=== PATIENT | female | born 1965 | race Caucasian/White ===

== ENCOUNTER → 2017-11-07 10:38 | Outpatient (CLI) | payer OTHER, SELFPAY ==
--- NOTE | 2017-11-07 | DI.MG.S_ITS ---
BILATERAL DIGITAL SCREENING MAMMOGRAM 3D/2D WITH CAD: 11/07/2017 CLINICAL: Routine screening. Comparison is made to exams dated: 11/03/2016 mammogram, 10/29/2015 mammogram, and 10/27/2014 mammogram - [facility]. The tissue of both breasts is heterogeneously dense. This may lower the sensitivity of mammography. Current study was also evaluated with a Computer Aided Detection (CAD) system. There is an asymmetry in the left breast posterior depth superior region seen on the mediolateral oblique view only. No other significant masses, calcifications, or other findings are seen in either breast. IMPRESSION: INCOMPLETE: NEEDS ADDITIONAL IMAGING EVALUATION The asymmetry in the left breast is indeterminate. Additional views with possible ultrasound are recommended. This exam was interpreted at Station ID: [id number]. NOTE: For mammograms, a report in lay terms will be sent to the patient. Approximately 15% of breast malignancies will not be visualized mammographically. In the management of a palpable breast mass, a negative mammogram must not discourage biopsy of a clinically suspicious lesion. Electronically Signed By: Ayana patel/terri:11/10/2017 09:36:42 letter sent: Additional Imaging Needed ACR BI-RADS Category 0: Incomplete [id number]
== END ==
PROVIDERS: Family Provider Family Medicine; PCP Family Medicine; Visit Provider Family Medicine
DX: Z12.31 Encounter for screening mammogram for malignant neoplasm of breast (principal); R92.8 Other abnormal and inconclusive findings on diagnostic imaging of breast
CPT/HCPCS: 77063; 77067

== ENCOUNTER 2017-11-18 11:05 | Emergency (ER) | payer OTHER, SELFPAY ==
[2017-11-18] VITALS (7 sets, daily range): BP systolic 136–156; BP diastolic 87–100; PULSE 75–95; RESP 16–18; TEMP 36.8–36.9; O2SAT 98–100
--- NOTE | 2017-11-18 13:03 | ED.ABDPAIN ---
HPI - Abdominal Pain General Chief Complaint: Abdominal Pain Stated Complaint: TO GET US ON ABDOMEN&CHECK TO SEE PARACENTESIS Time Seen by Provider: 11/18/17 12:14 Source: patient Mode of arrival: ambulatory Limitations: no limitations History of Present Illness HPI narrative: 52-year-old female with a history of stage IV colon cancer and recurrent ascites, as well as DVT on warfarin presents with increasing abdominal distention and pain requesting paracentesis. She had this done 6 times in June but has not had to have it done since. She denies fevers, chills, nausea, vomiting, diarrhea, or constipation. She notes that it has been done in radiology previously and would like to have it done by radiologist as possible. She states that her pain is usually controlled with a fentanyl patch but because of the distention she has needed increasing amounts of oral pain medication as well. She declines having a CT performed today and declines lab work as it was just done yesterday. Notes her INR was 3.5. When she called the oncology clinic they advised vitamin K and paracentesis. Related Data Home Medications Medication Instructions Recorded Confirmed levonorgestrel [Mirena] 52 mg INTRAU .ONCE #0 05/26/16 11/18/17 [clondoctrine] 1 dose PO QDAY #0 06/10/17 11/18/17 glucosamine sulfate [Synovacin] 500 mg PO QDAY #0 06/10/17 11/18/17 turmeric root extract 1 tab PO DAILY #0 08/19/17 11/18/17 lorazepam 0.5 mg PO Q6HP PRN 10/15/17 11/18/17 fentanyl 1 patch TOPICAL Q72H 11/18/17 11/18/17 gabapentin 1 - 2 cap PO TID PRN 11/18/17 11/18/17 warfarin 4 mg PO TUTH 11/18/17 11/18/17 warfarin [Coumadin] 5 mg PO SUMOWEFRSA 11/18/17 11/18/17 zolpidem 5 - 10 mg PO BEDTIME PRN 11/18/17 11/18/17 Previous Rx's Medication Instructions Recorded losartan 50 mg PO QDAY #90 tab 05/05/17 oxycodone-acetaminophen [Percocet] 1 - 2 tab PO Q4HP PRN #60 tab 07/22/17 Allergies Allergy/AdvReac Type Severity Reaction Status Date / Time shellfish derived Allergy Unknown Verified 11/18/17 14:54 [SHELLFISH DERIVED] SEAFOOD AdvReac Unknown VOMITING Uncoded 11/18/17 14:54 AND DIARRHEA Review of Systems Review of Systems All systems reviewed & are unremarkable except as noted in HPI and below Constitutional Denies chills, Denies fever(s), Denies lethargy and Denies weakness Eyes Denies change in vision, Denies eye discharge, Denies irritation and Denies loss of vision ENT Ears, Nose, Mouth, and Throat: Denies change in voice, Denies neck pain and Denies sore throat Cardiovascular Denies chest pain, Denies irregular heart rhythm, Denies lightheadedness, Denies palpitations, Denies dyspnea, Denies dyspnea on exertion and Denies orthopnea Respiratory Denies cough, Denies dyspnea, Denies dyspnea on exertion and Denies wheezing Gastrointestinal Gastrointestinal: Reports abdominal pain, Denies change in bowel habits, Denies diarrhea, Denies nausea and Denies vomiting Comments: Diffuse abdominal pain and distention Genitourinary Denies hematuria, Denies flank pain, Denies urinary incontinence and Denies urinary urgency Musculoskeletal Denies neck pain Integumentary/Breasts Denies pruritus, Denies erythema, Denies rash and Denies wounds Neurologic Denies confusion, Denies loss of vision and Denies weakness Psychiatric Denies anxiety, Denies confusion, Denies depression, Denies homicidal ideation and Denies suicidal ideation Endocrine Denies palpitations Hematologic/Lymphatic Denies easy bruising Allergic/Immunologic Denies wheezing [facility] Social History Smoking Status: Never smoker Exam Initial Vital Signs Initial Vital Signs: Vital Signs Temperature 98.4 F 11/18/17 11:16 Pulse Rate 95 H 11/18/17 11:16 Respiratory Rate 18 11/18/17 11:16 Blood Pressure 139/100 H 11/18/17 11:16 Pulse Oximetry 98 11/18/17 11:16 Const General: cooperative and well developed Nutritional Appearance: well nourished Orientation: alert, awake, oriented x3 and not confused HENND Head: normocephalic and atraumatic Ears: external ears normal and TM's normal bilaterally Nose: external nose normal and No nasal discharge Face and sinus: sinuses nontender, face symmetric, no sinus tenderness and No dry mucous membranes Mouth: oral mucosae normal and moist mucous membranes Teeth and gingiva: dentition normal Throat: tonsils normal and uvula midline Eyes General: appearance normal, both eyes and all related structures Eyelids: eyelids normal Conjunctivae: conjunctivae normal Sclera: sclerae normal Pupils: PERRL EOM: EOM intact bilaterally Neck Neck: normal visual inspection, trachea midline, No lymphadenopathy, No midline deformity and No JVD Lymphatic: No lymphedema Chest Chest: normal inspection of the chest Resp Effort & Inspection: normal respiratory effort, able to speak in complete sentences, no respiratory distress and no use of accessory muscles Auscultation: clear to auscultation bilaterally, no rales, no rhonchi and no wheezes Cardio Rate: regular rate Rhythm: regular rhythm Heart Sounds: no click, no gallops, no murmurs and no rubs Pulses: normal peripheral pulses GI Inspection: distended Palpation: soft, no hepatosplenomegaly, No guarding, No pulsatile mass and tender Auscultation: normal bowel sounds Other: Mild diffuse tenderness, positive fluid wave, moderate-size fluid pockets with bedside ultrasound, positive shifting dullness Back/Spine/Pelvis Back: No CVA tenderness Cervical Spine: cervical ROM normal and No pain with cervical ROM Thoracic/Lumbar Spine: thoracic and lumbar spine normal to inspection Skin General: no rashes or lesions noted, No jaundice and No petechiae Neuro General: alert, oriented x3, gait normal and no focal motor deficits Speech: speech normal Extrem General: full ROM, no clubbing, cyanosis or edema, no pedal edema and no calf tenderness Psych Appearance: well kempt Mental Status: mental status grossly normal Attitude: cooperative Thought Content: normal and suicidality Judgment: judgment good Procedures Paracentesis Time Out Performed: Yes Local Anesthetic: lidocaine 1% and with epi Fluid: cloudy, bloody and sent to lab for analysis (5.5 L removed. PT tolerated well without hypotension. ) Post Procedure Exam: awake, alert Patient Tolerated Procedure: Well and No complications Complications: none Course Orders Ordered: ED Orders 11/18/17 13:55 Prothrombin Time INR Stat 11/18/17 15:30 Cell Count w Diff Body Fluid Stat Glucose Body Fluid Stat LDH Body Fluid Stat Total Protein Body Fluid Stat 11/18/17 16:36 Body Fluid Culture Stat Discontinued Medications Phytonadione 10 mg/ Dextrose 51 mls @ 102 mls/hr IV NOW ONE Stop: 11/18/17 14:00 Last Infusion: 11/18/17 14:54 Dose: 0 mls/hr Admin: 11/18/17 14:28 Dose: 102 mls/hr Reevaluation(s) Reevaluation #1: I discussed with the patient her options and she would like to have the paracentesis done by me now and will accept the vitamin K in the IV. Repeat INR is currently pending. Time: 14:14 Consultations Consultation #1: Discussed patient's care with Dr. Grover in Radiology and he notes that he would not do a paracentesis unless her platelets are above 50 and her INR is below 1.5. Time: 14:14 Consultation #2: Discussed patient's care with Dr. Myers who agrees she needs CT abdomen and pelvis. Patient would like to wait until her follow-up on Thursday. Time: 17:01 Vital Signs - 8 hr 11/18/17 11:16 11/18/17 14:00 11/18/17 14:55 Temperature 98.4 F Pulse Rate 95 H 82 75 Respiratory Rate 18 16 16 Blood Pressure 139/100 H Blood Pressure [Left Arm] 156/91 H 141/94 H Pulse Oximetry 98 100 100 11/18/17 15:30 11/18/17 16:00 11/18/17 16:31 Temperature 98.3 F Pulse Rate 77 79 79 Respiratory Rate 16 18 18 Blood Pressure Blood Pressure [Left Arm] 147/98 H 156/98 H 136/87 H Pulse Oximetry 100 100 100 11/18/17 16:45 Temperature Pulse Rate 78 Respiratory Rate 18 Blood Pressure Blood Pressure [Left Arm] 155/98 H Pulse Oximetry 100 MDM - Abdominal Pain Lab Data Lab Results 11/18/17 Range/Units 13:55 PT 31.0 H D (10.1-12.7) SECONDS INR 2.9 H (0.9-1.3) MDM Narrative Medical decision making narrative: Patient who is presenting symptom for her stage IV colon cancer was ascites presents with recurrence of ascites and abdominal pain. She refused lab work other than INR to be rechecked. This was elevated and she was given vitamin K 10 units. 5.5 L were withdrawn. Advised that she restart her Coumadin tomorrow. She needs to have a CT of the abdomen pelvis performed and oncology was consulted and agrees. She will have this done tomorrow. She is feeling much better and was asymptomatic after the paracentesis. She is discharged in stable condition. Discharge Plan Departure Patient Disposition: Home, Self-Care Clinical Impression: Ascites, Abdominal pain, Colon cancer Instructions: DI for Ascites, DI for Abdominal Paracentesis Activity Restrictions/Additional Instructions: It was nice to see you again Ila! I'm sorry that you are going through this hard time. Thank you for letting me be part of your care today. Please follow up on Thursday as scheduled and you will need to have a CT done much sooner than 2-3 weeks. Enjoy your day tomorrow and return if you are feeling worse. Restart your coumadin tomorrow. Prescriptions: No Action levonorgestrel [Mirena] 1 EACH intrauterine device 52 mg INTRAU .ONCE Qty: 0 RF: 0 losartan 50 MG tablet 50 mg PO QDAY Qty: 90 RF: 3 glucosamine sulfate [Synovacin] 500 MG capsule 500 mg PO QDAY Qty: 0 RF: 0 [clondoctrine] 1 dose PO QDAY Qty: 0 RF: 0 oxycodone-acetaminophen [Percocet] 5 MG/325 MG tablet 1 - 2 tab PO Q4HP PRNQty: 60 RF: 0 turmeric root extract 1 tab PO DAILY Qty: 0 RF: 0 lorazepam 0.5 MG tablet 0.5 mg PO Q6HP PRN (Reason: nausea or sleep) RF: 0 fentanyl 50 mcg/hr patch 72 hour 1 patch Topical Q72H RF: 0 gabapentin 300 mg capsule 1 - 2 cap PO TID PRN (Reason: Pain, Moderate) RF: 0 warfarin 4 mg tablet 4 mg PO TUTH RF: 0 warfarin [Coumadin] 5 MG tablet 5 mg PO SUMOWEFR RF: 0 zolpidem 10 MG tablet 5 - 10 mg PO BEDTIME PRN (Reason: Sleep) RF: 0 Referrals: Dwight Jimenez MD [Primary Care Provider] -
[2017-11-18 14:10] LABS: INR 2.9 (0.9-1.3)
[2017-11-18] MEDS: PHYTONADIONE (VIT K1) 10 MG in DEXTROSE 5 % IN WATER 50 ML 102 ML IV (14:28)
--- NOTE | 2017-11-18 16:28 | PC.NURSE ---
Pt tolerated procedure well, vitals stable throughout. Pt denies pain or discomfort.
[2017-11-18 17:01] LABS: Glucose Body Fluid < 20 mg/dL; Total Protein Body Fluid 5.2 g/dL
[2017-11-18 17:07] LABS: LDH Body Fluid 2283 U/L
[2017-11-18 17:32] LABS: Body Fluid Red Blood Cells 15218 /uL; Body Fluid Tot Nucleated Cells 1409 /uL
[2017-11-18 17:59] LABS: Body Fluid Appearance CLOUDY; Body Fluid Clotted? NO CLOTS PRESENT; Body Fluid Color PINK
[2017-11-18 20:27] LABS: Mononuclear WBC Body Fluid 100 %; Polynuclear WBC Body Fluid 0 %
[2017-11-18 20:28] LABS: Eosinophils Body Fluid 0 %; Other Cells Body Fluid 0 %
== END 2017-11-18 17:10 | disposition home or self-care (01) ==
PROVIDERS: Emergency Provider Emergency Medicine; Family Provider Family Medicine; PCP Family Medicine
DX: R18.8 Other ascites (principal); R10.9 Unspecified abdominal pain; C18.9 Malignant neoplasm of colon, unspecified
CPT/HCPCS: 36415; 49082; 82945; 83615; 84157; 85610; 87070; 87075; 87205; 89051; 96365; 99283; 99285; 99292; J3430

== ENCOUNTER → 2017-11-23 13:39 | Outpatient (CLI) | payer OTHER, SELFPAY ==
--- NOTE | 2017-11-23 14:05 | DI.CT.S_ITS ---
PROCEDURE: CT CHEST ABD PEL W CON INDICATIONS: metastatic colon ca, re accumulation of ascites 11/12 cycles TECHNIQUE: After the administration of oral and intravenous contrast, 5 mm thick sections acquired from the lung apices to the symphysis. 5 mm coronal and sagittal reformats were performed, with additional 7 mm coronal MIP reformats through the lungs. For radiation dose reduction, the following was used: automated exposure control, adjustment of mA and/or kV according to patient size. COMPARISON: [facility], CT, ABDOMEN/PELVIS WITH CONTRAST, 06/14/2017, 13:34. [facility], CT, THORAX WITH CONTRAST, 09/11/2017, 15:21. [facility], CT, SOFT TISSUE NECK W CONTRAST, 09/11/2017, 15:21. [facility], CT, CHEST/ABD/PEL WITH CONTRAST, 08/25/2017, 11:39. FINDINGS: Image quality: Excellent. CHEST: Lungs and pleura: Several pulmonary nodules are seen, which are not significantly changed compared to the prior recent study. No acute airspace opacities. No pleural effusions or pneumothorax. Central and peripheral airways appear patent and normal in caliber. Mediastinum: Heart size is normal. No pericardial effusion. No mediastinal or hilar adenopathy by size criteria. Thoracic aorta and central pulmonary arteries are normal in size. Esophagus is normal in caliber. There is abnormal fluid seen adjacent to the distal esophagus (not within the esophageal lumen). No hiatal hernia. Chest wall: A left-sided chest port is seen, with the tip within the superior aspect of the superior vena cava. No axillary or supraclavicular adenopathy by size criteria. Thyroid gland demonstrates a 1 cm poorly enhancing nodule involving the left thyroid, as on series 2 image 11. ABDOMEN: Solid organs: Liver is normal in size and enhancement. Gallbladder is largely collapsed at the time of this study. Biliary system is non dilated. Pancreas enhances normally. Spleen is normal in size and enhancement. No adrenal nodules. Kidneys demonstrate normal size and enhancement, without hydronephrosis. Peritoneum and bowel: [id number] ascites is seen. The volume of ascites is slightly decreased compared to 08/25/17 examination. There is omental caking seen. Peritoneal masses can be seen within the anterior pelvis, which are slightly obscured by the ascites itself. The peritoneal masses are similar to the prior CT. Generalized wall thickening can be seen involving the rectum. Nodes and vessels: No retroperitoneal or mesenteric adenopathy by size criteria. Aorta and inferior vena cava are normal in size. Miscellaneous: There is a calcified nodule seen along the umbilicus, which measures 3 cm transversely. This is increased in size compared to the prior CT dated 08/25/17. PELVIS: Genitourinary: Bladder wall thickness is normal. An IUD can be seen within the superior uterus. Miscellaneous: No inguinal hernias or adenopathy. Bones: No suspicious bony lesions. No vertebral body compression fractures. Degenerative changes are seen. Focal facet hypertrophy is seen at the L5-S1 level. IMPRESSION: The volume of ascites is slightly decreased compared to the prior CT. The degree of omental caking and peritoneal masses is similar to the prior CT. Fluid is seen adjacent to the distal esophagus, which is presumed to be related to ascites fluid insinuating superiorly along the esophagus itself. Stable pulmonary nodules. There is a 3 cm partially calcified nodule involving the umbilicus, which is increased in prominence compared to the prior. Stable thickening of the rectum. Incidental note is made of: 1 cm left thyroid nodule Left-sided chest port IUD Dictated by: Ross Fisher M.D. on 11/23/2017 at 14:10 Approved by: Ross Fisher M.D. on 11/23/2017 at 14:24
== END ==
PROVIDERS: Family Provider Family Medicine; PCP Family Medicine; Visit Provider Nurse Practitioner Gerontology
DX: C18.9 Malignant neoplasm of colon, unspecified (principal); C78.5 Secondary malignant neoplasm of large intestine and rectum; R91.8 Other nonspecific abnormal finding of lung field; R18.8 Other ascites; E04.1 Nontoxic single thyroid nodule
CPT/HCPCS: 71260; 74177; Q9967

== ENCOUNTER → 2018-01-11 10:40 | Outpatient (CLI) | payer OTHER, SELFPAY ==
--- NOTE | 2018-01-11 | DI.RAD.S_ITS ---
PROCEDURE: XR ABDOMEN 1V INDICATIONS: Malignant neoplasm of rectosigmoid junction TECHNIQUE: One view of the abdomen acquired. COMPARISON: [facility], CT, CT CHEST ABD PEL W CON, 11/23/2017, 14:37. FINDINGS: Surgical changes and devices: Intrauterine device incompletely visualized.. Bowel: Bowel gas pattern is normal. Soft tissues: No suspicious abdominal calcifications. Visualized solid organ contours appear normal in size. Bones: No suspicious bony lesions. IMPRESSION: Normal bowel gas pattern. Dictated by: Marvel ZAMUDIO Interpreted: Alicia Pinedo MD on 01/11/2018 at 10:58 Approved by: Alicia Pinedo M.D. on 01/11/2018 at 14:40
== END ==
PROVIDERS: Visit Provider Nurse Practitioner Gerontology
DX: C19 Malignant neoplasm of rectosigmoid junction (principal)
CPT/HCPCS: 74018

== ENCOUNTER → 2018-01-20 13:40 | Outpatient (CLI) | payer OTHER, SELFPAY ==
--- NOTE | 2018-01-20 13:41 | DI.US.S_ITS ---
PROCEDURE: US PARACENTESIS INDICATIONS: ASCITES TECHNIQUE: The indications, alternatives, benefits, risks, and complications of the procedure were explained to the patient. Written informed consent was obtained and placed in the chart. The abdomen and pelvis were examined sonographically, and an appropriate site was chosen for paracentesis. The skin was prepared and draped in the usual sterile fashion, and 1% lidocaine was infiltrated from the skin down through the peritoneal surface. A 19-gauge catheter-covered needle was then introduced into the peritoneal space, the catheter was advanced and the needle was withdrawn, and thereafter peritoneal fluid was withdrawn. The catheter was then removed and a dressing was applied. The fluid was discarded if the clinician did not order diagnostic testing of the fluid. COMPARISON: [facility], PARACENTESIS, 07/03/2017, 13:42. [facility], PARACENTESIS, 06/29/2017, 8:37. [facility], PARACENTESIS, 06/22/2017, 8:35. FINDINGS: Access site: Right lower quadrant pelvic body wall anterolaterally Needle: One-Step centesis catheter with introducer needle. Fluid volume and description: 900 cc slightly turbid serous fluid Fluid sent for diagnostic testing: Not requested Medications: 1% lidocaine for local anaesthesia. Complications: None. IMPRESSION: Successful ultrasound-guided paracentesis. Dictated by: Otis Swanson M.D. on 01/20/2018 at 15:08 Approved by: Otis Swanson M.D. on 01/20/2018 at 15:09
== END ==
PROVIDERS: Family Provider Family Medicine; PCP Family Medicine; Visit Provider Nurse Practitioner Gerontology
DX: R18.8 Other ascites (principal)
CPT/HCPCS: 49083

== ENCOUNTER → 2018-01-28 11:20 | Outpatient (CLI) | payer OTHER, SELFPAY ==
--- NOTE | 2018-01-28 11:50 | DI.CT.S_ITS ---
PROCEDURE: CT CHEST ABD PEL W CON INDICATIONS: Restaging colon cancer TECHNIQUE: After the administration of oral and intravenous contrast, 5 mm thick sections acquired from the lung apices to the symphysis. 5 mm coronal and sagittal reformats were performed, with additional 7 mm coronal MIP reformats through the lungs. For radiation dose reduction, the following was used: automated exposure control, adjustment of mA and/or kV according to patient size. COMPARISON: [facility], CT, CT CHEST ABD PEL W CON, 11/23/2017, 14:37. FINDINGS: Image quality: Excellent. CHEST: Lungs and pleura: Compared to previous study, there is interval development of [id number] right-sided pleural effusion with adjacent compressive atelectasis involving posterior aspect of right lower lobe. There is also interval development of trace left-sided pleural effusion with adjacent atelectasis. Numerous bilateral pulmonary nodules and nodular pleural thickening are again seen, with suggestion of interval slight increase in size and numbers of nodules in bilateral lower lobes no lung bases. A sample nodule in central left lower lobe now measures 11 mm in size compared to 8 mm on previous study. (Series 3 image 30). There are numerous Central and peripheral airways appear patent and normal in caliber. Mediastinum: Heart size is normal. No pericardial effusion. No mediastinal or hilar adenopathy by size criteria. Thoracic aorta and central pulmonary arteries are normal in size. Esophagus is normal in caliber. No hiatal hernia. Chest wall: No axillary or supraclavicular adenopathy by size criteria. 1.3 cm hypodense nodule in mid pole of left thyroid lobe is seen. Left chest wall Port-A-Cath tip is in the region of SVC. ABDOMEN: Solid organs: Liver is normal in size and enhancement. Gallbladder is collapsed, no gross abnormality is seen. Biliary system is non dilated. Pancreas enhances normally. Spleen is normal in size and enhancement. No adrenal nodules. Kidneys demonstrate normal size and enhancement, without hydronephrosis. Peritoneum and bowel: There is interval increase in amount of ascites fluid. No gross free air. Previously described omental caking and peritoneal masses are not significantly changed in size and appearance. No evidence of bowel obstruction is seen. No significant bowel wall thickening is noted on the current study. Nodes and vessels: No retroperitoneal or mesenteric adenopathy by size criteria. Aorta and inferior vena cava are normal in size. Miscellaneous: Partially calcified nodule is again seen along the umbilicus, now measures 4.3 x 3.5 cm in size compared to 3 cm in size on previous study. PELVIS: Genitourinary: Bladder wall thickness is normal. Intrauterine device is noted. Miscellaneous: No inguinal hernias or adenopathy. Bones: No suspicious bony lesions. No vertebral body compression fractures. IMPRESSION: 1. Interval development of right greater than left bilateral pleural effusion. Questionable interval slight increase in size and numbers of pulmonary nodules in bilateral lower lobes near lung bases. Pulmonary nodules in bilateral upper to midlung love are unchanged in size and numbers. 2. No gross adenopathy is seen in chest, abdomen or pelvis. 3. Interval increase in amount of ascites fluid. Overall omental caking and peritoneal masses are not significantly changed in size and appearance. Increase in size of partially calcified lesion in the region of umbilicus. 4. No peritoneal free air. No bowel obstruction. Dictated by: Herb Martin M.D. on 01/28/2018 at 12:38 Approved by: Herb Martin M.D. on 01/28/2018 at 13:06
== END ==
PROVIDERS: Visit Provider Nurse Practitioner Gerontology
DX: C19 Malignant neoplasm of rectosigmoid junction (principal); J90 Pleural effusion, not elsewhere classified; R91.8 Other nonspecific abnormal finding of lung field
CPT/HCPCS: 71260; 74177; Q9967

== ENCOUNTER → 2018-02-05 08:04 | Outpatient (CLI) | payer OTHER, SELFPAY ==
[2018-02-05 09:11] LABS: INR 1.7 (0.9-1.3); Prothrombin Time 18.5 SECONDS (10.1-12.7)
--- NOTE | 2018-02-05 10:03 | DI.US.S_ITS ---
PROCEDURE: US PARACENTESIS INDICATIONS: ASCITES TECHNIQUE: The indications, alternatives, benefits, risks, and complications of the procedure were explained to the patient. Written informed consent was obtained and placed in the chart. The abdomen and pelvis were examined sonographically, and an appropriate site was chosen for paracentesis. The skin was prepared and draped in the usual sterile fashion, and 1% lidocaine was infiltrated from the skin down through the peritoneal surface. A 19-gauge catheter-covered needle was then introduced into the peritoneal space, the catheter was advanced and the needle was withdrawn, and thereafter peritoneal fluid was withdrawn. The catheter was then removed and a dressing was applied. The fluid was discarded if the clinician did not order diagnostic testing of the fluid. COMPARISON: [facility], PARACENTESIS, 01/20/2018, 14:07. FINDINGS: Access site: Right lower quadrant Needle: One-Step centesis catheter with introducer needle. Fluid volume and description: 2000 mL Fluid sent for diagnostic testing: Clear, slightly yellow tinged Medications: 1% lidocaine for local anaesthesia. Complications: None. IMPRESSION: Successful ultrasound-guided paracentesis. Dictated by: Herb Martin M.D. on 02/05/2018 at 12:02 Approved by: Herb Martin M.D. on 02/05/2018 at 12:03
== END ==
PROVIDERS: Visit Provider Nurse Practitioner Gerontology
DX: R18.8 Other ascites (principal); I82.622 Acute embolism and thrombosis of deep veins of left upper extremity; Z85.038 Personal history of other malignant neoplasm of large intestine
CPT/HCPCS: 36415; 49083; 85610

== ENCOUNTER → 2018-02-08 10:01 | Outpatient (CLI) | payer OTHER, SELFPAY ==
--- NOTE | 2018-02-08 | DI.RAD.S_ITS ---
PROCEDURE: XR ABDOMEN 1V INDICATIONS: Malignant neoplasm of rectosigmoid junction TECHNIQUE: One view of the abdomen acquired. COMPARISON: [facility], CR, XR ABDOMEN 1V, 01/11/2018, 10:27. FINDINGS: Surgical changes and devices: None. Bowel: Bowel gas pattern is normal. Residual oral contrast material. Moderate stool. Soft tissues: No suspicious abdominal calcifications. Visualized solid organ contours appear normal in size. IUD incidentally noted Bones: Diffuse discogenic changes in the lower lumbar spine. Mild bilateral hip degeneration. IMPRESSION: No evidence of bowel obstruction. Moderate stool. Dictated by: Rubén Bravo M.D. on 02/08/2018 at 11:40 Approved by: Rubén Bravo M.D. on 02/08/2018 at 11:42
== END ==
PROVIDERS: Visit Provider Nurse Practitioner Gerontology
DX: C19 Malignant neoplasm of rectosigmoid junction (principal)
CPT/HCPCS: 74018

== ENCOUNTER → 2018-02-10 11:54 | Outpatient (CLI) | payer OTHER, SELFPAY ==
--- NOTE | 2018-02-10 11:56 | DI.RAD.S_ITS ---
PROCEDURE: XR CHEST 2V INDICATIONS: dyspnea TECHNIQUE: 2 views of the chest were acquired. COMPARISON: CT from the 01/28/2018. Radiograph from 09/09/2017. FINDINGS: Surgical changes and devices: None. Lungs and pleura: Shallow inspiration. Bibasilar atelectasis or scarring. Bilateral pulmonary nodules. Mediastinum: Mediastinal contours are normal. Heart size is normal. Bones and chest wall: No suspicious bony abnormalities. Soft tissues appear unremarkable. Left-sided portacatheter. IMPRESSION: Shallow inspiration with bibasilar atelectasis/scarring. Known pulmonary nodules are poorly seen. Dictated by: Jose Gaitan M.D. on 02/10/2018 at 13:13 Approved by: Jose Gaitan M.D. on 02/10/2018 at 13:31
== END ==
PROVIDERS: Visit Provider Nurse Practitioner Gerontology
DX: R06.00 Dyspnea, unspecified (principal)
CPT/HCPCS: 71046

== ENCOUNTER 2018-03-15 14:21 | Inpatient (IN) | payer OTHER, SELFPAY ==
[2018-03-15 15:00] VITALS: BP 111/75; PULSE 80; RESP 16; TEMP 37.1; O2SAT 98
[2018-03-15 16:00] VITALS: O2SAT 98
--- NOTE | 2018-03-15 16:00 | PC.ADMIT ---
Admission: Pt arrived to floor with family. at bedside. discussed isolation precautions. Pt vitals taken. put in bed, pt put on 2L NC as O2 saturation was 86 on RA. Pt tolerating. Pt given kizzy flores MD in to see pt and discuss options. will continue to monitor.
[2018-03-15 16:31] VITALS: BMI 27.9
--- NOTE | 2018-03-15 18:07 | DI.RAD.S_ITS ---
PROCEDURE: XR ACUTE ABDOMEN SERIES INDICATIONS: eval for SMALL BOWEL OBSTRUCTION and obstipation TECHNIQUE: One view chest and two views of the abdomen were acquired. COMPARISON: [facility], CR, XR CHEST 2V, 02/10/2018, 11:42. [facility], CR, XR ABDOMEN 1V, 02/08/2018, 9:41. FINDINGS: Surgical changes and devices: Left Port-A-Cath is present with distal tip overlying the proximalmost SVC. Chest: Mild bibasilar opacities are present as well as increased pulmonary vascularity. Heart size is normal. No pleural effusions. No pneumoperitoneum. Abdomen: Bowel gas pattern demonstrates mildly dilated fluid-filled loops of small bowel with air-fluid levels. No suspicious calcifications. Visualized solid organ contours appear normal. Bones: No suspicious bony lesions. IMPRESSION: 1. Mild to moderate partial small bowel obstruction. 2. Bibasilar opacities with increased pulmonary vascularity. Opacities are likely data entry representative of small effusions. Areas of superimposed pneumonia and/or atelectasis are suspected. Dictated by: Alicia Pinedo M.D. on 03/15/2018 at 19:22 Approved by: Alicia Pinedo M.D. on 03/15/2018 at 19:24
--- NOTE | 2018-03-15 18:15 | PM.HP.1 ---
History of Present Illness Date Patient Seen: 03/15/18 Time Patient Seen: 18:16 Chief complaint: Refractory N/V/D Narrative: [age] years of age female with unfortunate diagnosis of a advanced metastatic colorectal cancer that is deemed non curable. Initial diagnosis of the colorectal cancer June 2017. Prognosis is considered poor. The oncology clinic has informed patient of the prognosis. Patient has requested DNR code status. Patient with a diagnosis of her 2nd relapse of C diff colitis approximately 8 weeks ago. Patient has been on a tapering dose of vancomycin to treat. According to the patient and the at bedside there was no C diff toxin obtained in stool to confirm diagnosis 8 weeks ago. Patient has been tapering down on the vancomycin but unable to take due to refractory nausea and vomiting. Patient was recently changed on her chemotherapy regimen which may have imparted at risk for nausea and vomiting symptoms. This was noted by the nurse practitioner working in the Oncology Clinic. Patient on Coumadin for treatment of a DVT to the right upper extremity that was diagnosed about 3-4 months ago. The sides the nausea and vomiting patient also notes abdominal pain is somewhat diffusely but a primary focus of discomfort to the abdomen in the region of a abdominal mass presumably related to the colorectal cancer. At the time of my exam with patient the nausea was less than it was in the oncology clinic setting. Patient History Comment: Past medical history includes the following Metastatic colorectal cancer diagnosed June 2017 with metastasis to the uterus the lungs. Prognosis is considered poor. Patient followed by Dr. Jeffery oncologist in outpatient setting Diagnosis of DVT to right upper extremity 3-4 months ago on Coumadin therapy since. Second replapse of C diff colitis 8 weeks ago Social history Patient is . Nonsmoker no alcohol abuse history. Surgical history no major surgery in the past Family history Mother with history of thyroid cancer. Father with history of prostate cancer. No history of colon cancer in family Family & Social History Social History: household members spouse Prior Living Arrangements House Safety & Behavioral: Feels Safe in Current Yes Environment Been Physically Hurt or No Threatened By a Person Suicidal Ideation Description None Suicide Plan Description No Plan Tobacco & Substance use: Smoking Status Never smoker alcohol intake frequency 0-2 drinks per day Substance Use Type does not use Meds Home Medications Medication Instructions Recorded Confirmed Type levonorgestrel [Mirena] 52 mg INTRAU .ONCE #0 05/26/16 03/15/18 History losartan 50 mg PO QDAY #90 tab 05/05/17 03/15/18 Rx zolpidem 5 - 10 mg PO BEDTIME PRN 11/18/17 03/15/18 History gabapentin 1 - 2 cap PO TID PRN #120 cap 12/25/17 03/15/18 Rx vancomycin 125 mg PO QID 01/11/18 03/15/18 History oxycodone-acetaminophen [Percocet] 1 - 2 tab PO Q4HP PRN #60 tab 02/08/18 03/15/18 Rx fentanyl 75 mcg TRANSDERMAL Q3D 03/15/18 03/15/18 History lorazepam 1 mg PO Q6HP PRN 03/15/18 03/15/18 History ondansetron [Zofran ODT] 4 mg PO Q8H PRN 03/15/18 03/15/18 History Allergies Allergy/AdvReac Type Severity Reaction Status Date / Time shellfish derived Allergy Intermediate DIARRHEA Verified 02/01/18 14:00 [SHELLFISH DERIVED] AND VOMITING Review of Systems Review of Systems A 10 point system review was negative except for the symptom as described which is primarily the refractory nausea vomiting. Also associated diarrhea somewhat diffuse abdominal pain but of focus of discomfort in the abdomen in the region of the induration presumably colon cancer related Exam Vital Signs (past 8 hours): Oxygen Delivery Method Room Air Narrative Exam Narrative: General appearance patient is awake and alert with moderate distress due to the nausea as well as abdominal pain Psychiatric well oriented to time place and person mood is stressed as stated affect is appropriate Skin no rashes or lesions nonjaundiced Eyes pupils are equal round and reactive to light Ears nose and throat hearing grossly intact dentition is fair with no oropharyngeal lesions Respiratory with fairly good Airflow sounds no wheezes crackles Cardiovascular regular rate rhythm no murmurs PMI nondisplaced +3 pulses to extremities GI in the mid abdomen region is an induration is quite prominent protruding from the abdominal wall appears to be a focus of tenderness. Patient also has generalized tenderness to palpation around the abdomen. Diminished bowel sounds are evident. abdomen is protuberant Neurologic no focal neurologic changes cranial nerves 2-12 grossly intact no tremors at rest nor with intention Musculoskeletal strength appears 5/5 no clubbing is noted range of motion is normal Lymph nodes no lymphadenopathy evident to axilla nor groin Assessment & Plan Plan: Assessment/Plan Narrative: Refractory nausea and vomiting This may be multifactorial as cause. Patient on a new chemotherapy regimen for the colorectal cancer. Patient may have continuance or worsening of her C diff colitis. Patient also on multiple narcotic therapy with a quiescent abdomen. I have requested for a two view x-ray of the abdomen. May consider CT of the abdomen pelvis with IV and oral contrast. Providing patient Zofran as well as Reglan IV alternating q 3 hr Daily lab work requested Continue the analgesic therapy as he normally takes at home as tolerated. Add on Dilaudid IV for breakthrough pain as needed Diagnosis of C diff colitis 8 weeks ago Requested C diff toxin of the stool to further investigate. Hold the vancomycin at this time. Will consider fidaxomicin 200 mg p.o. b.i.d. for 10 days as alternate treatment Metastatic colorectal cancer with mets to the lung and uterus region Patient is followed by Dr. Jeffery at the Oncology Clinic Note recent change in the chemotherapy regimen DVT right upper extremity 3-4 months ago Continue the Coumadin to treat with a target INR of 2.0-3.0 Daily PT INR Time Spent With Patient Time with patient: Greater than 35 minutes (70 min to admit) Quality VTE Deep Vein Thrombosis/Pulmonary Embolism Present on Admission: No
[2018-03-15] MEDS: HYDROMORPHONE 1 MG INJ IV (18:17)
[2018-03-15] MEDS: ONDANSETRON 4 MG/2 ML INJ IV (18:22)
[2018-03-15] MEDS: LACTATED RINGERS 1,000 ML 100 ML IV (19:05)
[2018-03-15 20:02] VITALS: BP 125/82; PULSE 93; RESP 16; TEMP 37.4; O2SAT 95
[2018-03-15] MEDS: LORazepam 1 MG TABLET PO (20:42)
[2018-03-15 23:00] VITALS: O2SAT 97
[2018-03-15 23:30] VITALS: BP 137/93; PULSE 92; RESP 16; TEMP 36.6; O2SAT 92
[2018-03-16] VITALS (7 sets, daily range): BP systolic 132–156; BP diastolic 88–101; PULSE 95–98; RESP 15–20; TEMP 36.4–37.3; O2SAT 91–96
[2018-03-16] MEDS: ZOLPIDEM 5 MG TABLET 10 MG PO ×2 (00:17→23:47)
[2018-03-16] MEDS: HYDROMORPHONE 1 MG INJ IV ×2 (00:17→08:12)
[2018-03-16] MEDS: LORazepam 1 MG TABLET PO ×2 (04:16→10:50)
[2018-03-16] MEDS: LACTATED RINGERS 1,000 ML 100 ML IV ×3 (04:17→23:50)
--- NOTE | 2018-03-16 06:11 | PC.NURSE ---
Patient had 175mL of liquid black stool, C-Diff Culture sent
[2018-03-16 07:24] LABS: Clostridium Difficile Tox PCR Negative for C. diff
[2018-03-16] MEDS: ONDANSETRON 4 MG/2 ML INJ IV (08:08)
--- NOTE | 2018-03-16 11:19 | CM.DANOTE ---
DCP/Assessment continued: Reviewed chart. Patient is a 68yr old male admitted [facility] for revision of left CARLI performed by Dr. Melchor on 03-15-18. PCP is [facility] in [place]. Primary payor is 1)[employer] 2)[employer]. Met with patient explained CM/SW role. Patient alert and oriented, resting in recliner at time of visit. Patient reports that he hopes to d/c today. Patient indicates that he has all needed DME in the home from original surgery. Patient also established with [facility] for outpatient therapy but aware that he will need new referral. Patient reports that he will either call [facility] or Orthopedic office when he gets home. Therapy evaluation currently pending. Patient does not anticipate any barriers to his d/c today. P: Home today with outpatient follow up with [facility] for therapy and Orthopedics for surgical follow up. SHERRILL Aguilera Discharge Planning/Care Management CM Discharge Assessment Start: 03/16/18 11:15 Freq: Status: Active Protocol: Document 03/16/18 11:15 KJS (Rec: 03/16/18 11:19 KJS [id number]) Discharge Planning Assessment Assigned Well Driller SHERRILL Aguilera Contact Information Palma Barnett phone# Advance Directives? Yes History Provided By Patient Has Patient been admitted in last 30 Yes days? Comment Recurrent hip dislocations Prior Living Arrangements House Household Members significant other Type of transporation used prior to Drives own vehicle admit Independent with ADL's Yes Is patient alert and oriented? Yes Caregiver for Another No DME Already Rented / Owned FWW / Walker Cane Barriers to Discharge No Transportation Arrangement Friend/family to provide transport. Referrals Initiated None needed Whiteboard Updated in Patient Room with Yes name and ext. # of Well Driller Review Status In Process Please Provide Date Initial DC 03/16/18 Assessment Was Performed Next Review Type Continued Stay Review
[2018-03-16] MEDS: METOCLOPRAMIDE 10 MG/2 ML INJ IV ×2 (12:43→18:27)
[2018-03-16] MEDS: HYDROMORPHONE 0.5 MG INJ 2 MG IV (13:03)
[2018-03-16] MEDS: ENOXAPARIN 40 MG/0.4 ML SYRINGE SUBCUT (13:56)
[2018-03-16] MEDS: HYDROMORPHONE PCA 6 MG/30 ML PCA.VIAL IV ×2 (14:10→22:32)
--- NOTE | 2018-03-16 14:19 | PC.NURSE ---
1415 PRE CERTIFICATION SPECIALIST set up & Pt instructed on use. friends and spouse at bedside. No CT, Pt & spouse to discuss, make decisions regarding care.
[2018-03-16 14:22] LABS: Hemoglobin 7.8 g/dL (12.0-16.0); Mean Corpuscular HGB Conc 32.5 % (30-36); Mean Corpuscular Hemoglobin 26.2 PG (26-34); Mean Corpuscular Volume 80.8 fL (80-100); Platelet Count 245 X10^3/uL (150-400); Red Blood Cell Count 2.97 X10^6/uL (4.0-5.2); Red Cell Distribution Width 19.7 % (11.6-14.8); White Blood Cell Count 4.4 X10^3/uL (4.5-11.0)
[2018-03-16 14:29] LABS: Add Manual Diff / Slide Review NO; Basophils Percent Auto 0.3 % (0-2); Eosinophils Percent Auto 1.9 % (2-4); Lymphocytes Percent Auto 10.5 % (25-40); Monocytes Percent Auto 7.7 % (3-14); Neutrophils Percent Auto 79.6 % (50-75)
[2018-03-16 14:30] LABS: Neutrophils Absolute Auto 3502 /uL (3000-5900)
--- NOTE | 2018-03-16 14:54 | PM.PN.1 ---
Subjective Date Patient Seen: 03/16/18 Time Patient Seen: 10:13 Interval history: History of present illness Follow-up on patient with small-bowel obstruction with abdominal pain. Patient with metastatic colorectal cancer with mets to the lung and uterus with poor prognosis. Patient also noted with diarrhea. Review of system Patient notes continued nausea and vomiting similar to yesterday. Pain in the abdomen is not less than that. No chest pain or shortness of breath Exam Vital Signs (past 8 hours): - 03/16/18 07:00 03/16/18 07:40 03/16/18 11:53 Temperature 97.5 F L 98.6 F Pulse Rate 95 H 98 H Respiratory Rate 20 16 Blood Pressure 156/94 H 152/93 H Pulse Oximetry 95 94 96 Oxygen Delivery Method Room Air Oxygen Flow Rate 0 Narrative Exam Narrative: General appearance patient is awake and alert with moderate to severe distress related to the abdominal pain and nausea Psychiatric well oriented to time place person mood is stressed affect is appropriate Respiratory fairly clear to auscultation no wheezes no crackles good air flow Cardiovascular regular rate rhythm no murmurs +3 pulses to extremities GI diffuse tenderness noted to palpation diminished bowel sounds noted as they were yesterday. No bruit Induration noted in the mid region of the abdomen suspected related to the colo rectal cancer Neurologic no focal neurologic changes cranial nerves 2-12 grossly intact no tremors Objective Labs Result Diagrams: 03/16/18 14:05 Labs: Laboratory Results - last 24 hr 03/16/18 03/16/18 06:30 14:05 WBC 4.4 L RBC 2.97 L Hgb 7.8 L Hct 24.0 L MCV 80.8 MCH 26.2 MCHC 32.5 RDW 19.7 H Plt Count 245 Neut % (Auto) 79.6 H Lymph % (Auto) 10.5 L Mcminn % (Auto) 7.7 Eos % (Auto) 1.9 L Baso % (Auto) 0.3 Neut # (Auto) 3502 Total Counted Cancelled Seg Neutrophils % Cancelled Band Neutrophils % Cancelled Lymphocytes % (Manual) Cancelled Atypical Lymphs % Cancelled Monocytes % (Manual) Cancelled Eosinophils % (Manual) Cancelled Basophils % (Manual) Cancelled Metamyelocytes % Cancelled Myelocytes % Cancelled Promyelocytes % Cancelled Blast Cells % Cancelled Neutrophils # (Manual) Cancelled Nucleated RBCs Cancelled Differential Comment Cancelled Hypersegmented Neuts Cancelled Reactive Lymphocytes Cancelled Plasma Cells Cancelled Smudge Cells Cancelled Other Cell Type Cancelled Toxic Granulation Cancelled Toxic Vacuolation Cancelled Dohle Bodies Cancelled Christina Rods Cancelled WBC Morphology Comment Cancelled Platelet Estimate Cancelled Clumped Platelets Cancelled Plt Morphology Comment Cancelled RBC Morphology Cancelled Dimorphic RBCs Cancelled Polychromasia Cancelled Hypochromasia Cancelled Poikilocytosis Cancelled Basophilic Stippling Cancelled Anisocytosis Cancelled Microcytosis Cancelled Macrocytosis Cancelled Spherocytes Cancelled Pappenheimer Bodies Cancelled Sickle Cells Cancelled Target Cells Cancelled Tear Drop Cells Cancelled Ovalocytes Cancelled Stomatocytes Cancelled Helmet Cells Cancelled Field-Hungry Horse Bodies Cancelled [place] Rings Cancelled Linden Cells Cancelled Acanthocytes (Spur) Cancelled Rouleaux Cancelled Schistocytes Cancelled C. difficile Tox (PCR) Negative for c. diff Assessment & Plan Plan: Assessment/Plan Narrative: Refractory nausea and vomiting This may be multifactorial as cause. Patient on a new chemotherapy regimen for the colorectal cancer. Patient may have continuance or worsening of her C diff colitis. Alternatively, patient may have functional versus obstructive small bowel obstruction. Patient also on multiple narcotic therapy with a quiescent abdomen. two view x-ray of the abdomen reported incomplete small bowel obstruction. I discussed these findings with the general surgeon pensions retirement plan specialist. As recommended by general surgeon, will proceed with a double contrast CT of the abdomen pelvis. Patient may need a temporary NG tube or feeding tube to facilitate the oral contrast being provided. Increase the Zofran dose to 8 mg IV q.6 hours along with continuance of Reglan IV as needed Incomplete small bowel obstruction Noted by x-ray of the abdomen March [address] of the abdomen pelvis pending to be done. Patient may require NG tube temporarily to facilitate oral contrast administration. General surgeon will review CT results once completed Significant abdominal pain Will start BEAN [employer] GROWER Dilaudid intravenous therapy today Diagnosis of C diff colitis 8 weeks ago Requested C diff toxin of the stool to further investigate. Held the vancomycin in the time. C diff toxin came back negative Could consider fidaxomicin 200 mg p.o. b.i.d. for 10 days as alternate treatment if C diff colitis were noted again. Metastatic colorectal cancer with mets to the lung and uterus region Patient is followed by Dr. Jeffery at the Oncology Clinic Note recent change in the chemotherapy regimen DVT right upper extremity 3-4 months ago Continue the Coumadin to treat with a target INR of 2.0-3.0 Daily PT INR Time Spent With Patient Time with patient: 25 - 35 minutes (30 min with patient at bedside and in discussion with the general surgeon by telephone) Quality VTE Deep Vein Thrombosis/Pulmonary Embolism Present on Admission: No
--- NOTE | 2018-03-16 15:56 | CM.DANOTE ---
PLEASE DISREGARD FIRST ASSESSMENT on WRONG PATIENT (REFER TO SECOND ASSESSMENT LISTED BELOW. Discharge Planning/Care Management CM Discharge Assessment Start: 03/16/18 11:15 Freq: Status: Active Protocol: Document 03/16/18 11:15 KJS (Rec: 03/16/18 11:19 KJS [id number]) Discharge Planning Assessment Assigned Negative Retoucher Sruthi Carey MSW Contact Information Palma Barnett phone# Advance Directives? Yes History Provided By Patient Has Patient been admitted in last 30 Yes days? Comment Recurrent hip dislocations Prior Living Arrangements House Household Members significant other Type of transporation used prior to Drives own vehicle admit Independent with ADL's Yes Is patient alert and oriented? Yes Caregiver for Another No DME Already Rented / Owned FWW / Walker Cane Barriers to Discharge No Transportation Arrangement Friend/family to provide transport. Referrals Initiated None needed Whiteboard Updated in Patient Room with Yes name and ext. # of Negative Retoucher Review Status In Process Please Provide Date Initial DC 03/16/18 Assessment Was Performed Next Review Type Continued Stay Review Document 03/16/18 15:52 KJS (Rec: 03/16/18 15:56 KJS [id number]) Discharge Planning Assessment Assigned Negative Retoucher Sruthi Carey EXTRUSION PRESS ADJUSTER Contact Information Dontae Harrisophelia ph# [phone] Advance Directives? Yes: DNR History Provided By Patient Friend Significant Other Has Patient been admitted in last 30 Yes days? Comment Active at [facility] [place] Prior Living Arrangements House Household Members spouse Type of transporation used prior to Relies on Others admit Independent with ADL's No Is patient alert and oriented? Yes: Very drowsy from medication Needs Assistance With Bathing Grooming Meal Prep Toileting Managing Medications Caregiver for Another No DME Already Rented / Owned Wheelchair FWW / Walker Cane Comment D/C plan undetermined at this time. Discharge Plan Home Transportation Arrangement Friend/family to provide transport vs. BLS pending status. Referrals Initiated Other Whiteboard Updated in Patient Room with Yes name and ext. # of Negative Retoucher Comment Provided EXTRUSION PRESS ADJUSTER name/number of SruthiSharita. Review Status In Process Please Provide Date Initial DC 03/16/18 Assessment Was Performed Next Review Type Continued Stay Review Discharge Planning/Care Management CM Discharge Assessment Protocol: Document 03/16/18 11:15 KJS (Rec: 03/16/18 11:19 KJS [id number]) Discharge Planning Assessment Assigned Negative Retoucher Contact Information Assessment Was Performed Next Review Type Continued Stay Review Document 03/16/18 15:52 KJS (Rec: 03/16/18 15:56 KJS [id number]) Discharge Planning Assessment Assigned Negative Retoucher SHERRILL Aguilera Contact Information Dontae Graham # [phone] Advance Directives? Yes: DNR History Provided By Patient Friend Significant Other Has Patient been admitted in last 30 Yes days? Comment Active at [facility] [place] Prior Living Arrangements House Household Members spouse Type of transporation used prior to Relies on Others admit Independent with ADL's No Is patient alert and oriented? Yes: Very drowsy from medication Needs Assistance With Bathing Grooming Meal Prep Toileting Managing Medications Caregiver for Another No DME Already Rented / Owned Wheelchair FWW / Walker Cane Comment D/C plan undetermined at this time. Discharge Plan Home Transportation Arrangement Friend/family to provide transport vs. BLS pending status. Referrals Initiated Other Whiteboard Updated in Patient Room with Yes name and ext. # of Negative Retoucher Comment Provided EXTRUSION PRESS ADJUSTER name/number of Ming. Review Status In Process Please Provide Date Initial DC 03/16/18 Assessment Was Performed Next Review Type Continued Stay Review
--- NOTE | 2018-03-16 16:01 | CM.SWNOTE ---
HEALTHCARE ADMINISTRATION INTERN Note: Reviewed chart. Initial assessment completed (see for details). HEALTHCARE ADMINISTRATION INTERN unable to amend initial assessment placed on wrong patient therefore, refer to second assessment OR read below note: Reviewed chart. Patient is a 52yr old female admitted to [facility] with refractory N/V/D. Patient past medical history includes diagnosis of advanced metastatic colorectal cancer diagnosed in June 2017. PCP was Dr. Jimenez at [facility]. Primary payor is 1)[place]. Patient's DPOA is spouse Dontae Graham ph# [phone]. Met with patient, spouse, and friends (Norma and Ros) at bedside explained CM team role. Patient very drowsy but agreeable for friends and spouse to stay during assessment. Patient refers to spouse to answer questions. Spouse reports that patient has been receiving treatment at [facility]. Patient seen by ELY Dinh and has been involved with ONC/HEALTHCARE ADMINISTRATION INTERN Keyla. Spouse emotional during interview and reports that they are considering hospice? MD in AM rounds discussed obtaining surgery consult for potential surgery? Spouse reports that they were told by surgery that patient is not a good candidate. Notified hospitalist and he reports that he will review documentation to determine if surgery will proceed? Notified MD that family inquiring about hospice. Spouse and friends with several questions regarding hospice in the home. Notified them that DME would be provided and that if they needed further information, HEALTHCARE ADMINISTRATION INTERN would be more than happy to call them for informational visit. They report that they will think on it tonight but this is likely the direction they would like to take. Offered support and encouraged them to call with any questions. Name/number left on white board. Will pass on to Gin MCCARTNEY to f/u in AM. Placed call to Elvia Dunham at [facility] she reports that she will be at [facility] this afternoon to meet with patient and spouse. She encourages hospice at this time. P: Pending. Spouse/patient considering hospice. At this time spouse primarily concerned about patient's pain and keeping her comfortable. 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 Over the last few months patient uses w/c for outside trips and can only ambulate short distances. SHERRILL Aguilera
[2018-03-16] MEDS: ONDANSETRON 4 MG ODT PO (16:19)
[2018-03-16 16:20] LABS: Alanine Aminotransferase 16 IU/L (9-52); Albumin 2.3 g/dL (3.5-5.0); Albumin Globulin Ratio 0.8 (1.0-2.8); Alkaline Phosphatase 118 U/L (38-126); Aspartate Aminotransferase 21 IU/L (14-36); Bilirubin Total 0.2 mg/dL (0.2-1.3); Blood Urea Nitrogen 12 mg/dL (7-17); Carbon Dioxide 29 mmol/L (22-32); Chloride 100 mmol/L (98-107); Estimated Glomerular Filt Rate > 60.0 mL/min (>60); Globulin 2.8 g/dL (1.7-4.1); Glucose 97 mg/dL (70-100); HEMOLYSIS < 15 (0-50); Potassium 3.5 mmol/L (3.4-5.1); Sodium 135 mmol/L (137-145); Total Protein 5.1 g/dL (6.3-8.2)
[2018-03-16] MEDS: ENOXAPARIN 80 MG/0.8 ML SYRINGE SUBCUT (21:34)
[2018-03-17] VITALS (8 sets, daily range): BP systolic 133–144; BP diastolic 90–102; PULSE 93–106; RESP 16–20; TEMP 36.6–37.1; O2SAT 92–104
[2018-03-17 05:29] LABS: Add Manual Diff / Slide Review NO; Basophils Percent Auto 0.2 % (0-2); Eosinophils Percent Auto 2.2 % (2-4); Hematocrit 21.1 % (36-46); Mean Corpuscular Hemoglobin 26.7 PG (26-34); Mean Corpuscular Volume 80.8 fL (80-100); Monocytes Percent Auto 11.9 % (3-14); Neutrophils Absolute Auto 2900 /uL (3000-5900); Neutrophils Percent Auto 69.7 % (50-75); Platelet Count 241 X10^3/uL (150-400); Red Blood Cell Count 2.61 X10^6/uL (4.0-5.2); Red Cell Distribution Width 19.3 % (11.6-14.8); White Blood Cell Count 4.1 X10^3/uL (4.5-11.0)
[2018-03-17 05:37] LABS: Alanine Aminotransferase 21 IU/L (9-52); Albumin 2.1 g/dL (3.5-5.0); Albumin Globulin Ratio 0.8 (1.0-2.8); Alkaline Phosphatase 99 U/L (38-126); Aspartate Aminotransferase 12 IU/L (14-36); BUN Creatinine Ratio 16.7 (6-22); Bilirubin Total 0.1 mg/dL (0.2-1.3); Blood Urea Nitrogen 10 mg/dL (7-17); Calcium 7.6 mg/dL (8.4-10.2); Carbon Dioxide 29 mmol/L (22-32); Chloride 100 mmol/L (98-107); Estimated Glomerular Filt Rate > 60.0 mL/min (>60); Globulin 2.5 g/dL (1.7-4.1); Glucose 86 mg/dL (70-100); HEMOLYSIS < 15 (0-50); Potassium 3.2 mmol/L (3.4-5.1); Sodium 136 mmol/L (137-145); Total Protein 4.6 g/dL (6.3-8.2)
[2018-03-17] MEDS: HYDROMORPHONE PCA 6 MG/30 ML PCA.VIAL IV ×3 (06:42→22:25)
[2018-03-17] MEDS: ONDANSETRON 4 MG ODT PO (08:18)
[2018-03-17] MEDS: ENOXAPARIN 80 MG/0.8 ML SYRINGE SUBCUT ×2 (09:15→20:18)
[2018-03-17] MEDS: LACTATED RINGERS 1,000 ML 100 ML IV ×2 (10:27→20:51)
--- NOTE | 2018-03-17 10:27 | PN_ITS ---
DATE OF SERVICE: 03/17/2018 SUBJECTIVE: A 52-year-old white female patient with stage IV widespread visceral metastatic colorectal carcinoma. IMPRESSION AND PLAN: After a pat discussion yesterday with the patient and her family, they have agreed to enter comfort care hospice, and that is underway. The hospice and appropriate personnel are being contacted. Patient has had a restful, comfortable night last night. I have instructed her to try full-liquid diet as tolerated and just eat whatever she can, and if she has emesis to slow down but to give it a try. She has had a comfortable night. She is resting well. She, of course, has been getting Dilaudid for pain control, and I will stand by but, at this point, see that surgical intervention of her bowel obstruction is not going to happen. It won't be meaningful in prolonging her life, and it actually might shorten her life. She and her family understand that and agree, and I will just see her on an as-needed basis. Ila Graham - Mirtha/harvey doc#: [id number]/job#: [id number] dd: 03/17/2018 09:41:00 dt: 03/17/2018 10:23:00 DICTATING MD/COPIES TO: Tho Roberts MD COPIES MNE: JOHNNIE
[2018-03-17] MEDS: ONDANSETRON 8 MG in SODIUM CHLORIDE 0.9% 50 ML 216 ML IV ×2 (13:32→20:18)
--- NOTE | 2018-03-17 14:50 | PM.PN.1 ---
Subjective Date Patient Seen: 03/17/18 Interval history: Still nauseated and with abdominal pain. Pain is worse with activity Exam Vital Signs (past 8 hours): - 03/17/18 07:40 03/17/18 09:42 03/17/18 12:04 Temperature 98 F 98.8 F Pulse Rate 102 H 98 H Respiratory Rate 17 16 Blood Pressure 144/100 H 140/98 H Pulse Oximetry 92 94 92 Oxygen Delivery Method Room Air Oxygen Flow Rate 0 Narrative Exam Narrative: Lungs: Clear to auscultation CV:tachy RRR nl S1 S2 Abd: distended/ soft/ diffusely tender, palpable masses, Fluid wave noted Ext: no edema Objective Labs Result Diagrams: 03/17/18 05:22 03/17/18 05:22 Labs: Laboratory Results - last 24 hr 03/16/18 03/17/18 03/17/18 14:05 05:22 05:22 WBC 4.1 L RBC 2.61 L Hgb 7.0 L Hct 21.1 L MCV 80.8 MCH 26.7 MCHC 33.0 RDW 19.3 H Plt Count 241 Neut % (Auto) 69.7 Lymph % (Auto) 16.0 L Pepin % (Auto) 11.9 Eos % (Auto) 2.2 Baso % (Auto) 0.2 Neut # (Auto) 2900 L Sodium 135 L 136 L Potassium 3.5 3.2 L Chloride 100 100 Carbon Dioxide 29 29 BUN 12 10 Creatinine 0.60 0.60 Estimated GFR > 60.0 > 60.0 BUN/Creatinine Ratio 20.0 16.7 Glucose 97 86 Calcium 8.0 L 7.6 L Total Bilirubin 0.2 0.1 L AST 21 12 L ALT 16 21 Alkaline Phosphatase 118 99 Total Protein 5.1 L 4.6 L Albumin 2.3 L 2.1 L Globulin 2.8 2.5 Albumin/Globulin Ratio 0.8 L 0.8 L Assessment & Plan (1) Metastatic colorectal cancer: Problem details: Comfort Care. Awaiting hospice consult Current visit: No Status: Acute (2) DVT (deep venous thrombosis): Qualifiers: DVT location: Affected thrombotic vein of extremity: Chronicity: Laterality: Current visit: No Status: Acute (3) Pain: Problem details: Continue Dilaudid for pain Current visit: No Status: Acute (4) C. difficile diarrhea: Problem details: Vancomycin discontinued, on fidoxamycin Current visit: No Status: Acute (5) Abdominal distention: Problem details: Secondary to METs Current visit: No Status: Acute (6) Ascites: Qualifiers: Ascites type: malignant Qualified Code(s): R18.0 - Malignant ascites Current visit: No Status: Acute Quality VTE Deep Vein Thrombosis/Pulmonary Embolism Present on Admission: No
--- NOTE | 2018-03-17 15:43 | PC.NURSE ---
Addendum entered by Kiki De Leon R.N. 03/17/18 22:26: used 1.2mg yoga coordinator dilaudid Original Note: 1540 CM in room to meet with pt and family.
--- NOTE | 2018-03-17 16:06 | CM.DPC ---
DCP Cont: Reviewed chart this morning. Attempted to meet w/pt this morning, no family at bedside and pt was sleeping soundly. Second attempt this afternoon approx 1200, pt,spouse and dtr requested this INSPECTOR PACKER GLASS CONTAINER return around 1400 since pt was just about to nap again, pt comfortable on POLYMER ENGINEER today. Returned this afternoon and pt/family appreciative of the visit, state they would like to go home w/hospice to assist. This INSPECTOR PACKER GLASS CONTAINER placed call to [facility] w/ [facility] and faxed referral packet per request. Pt/family requested hospital bed, bedside table, and shower chair if available (later determined [facility] does not deliver shower chairs), no cath and no O2 in place. Tyra explained pt has a spot for hospice f/u on Thursday, DME will be delivered Thursday morning. On Thursday, [facility] RN will come to [facility], paper supervisor their equipment for home POLYMER ENGINEER pump and follow pt/family home to assist w/ POLYMER ENGINEER pain pump. Pt has not had nutrition for 10 days, notes indicate IVF for push only (?) Relayed above to pt's spouse and encouraged him to contact this INSPECTOR PACKER GLASS CONTAINER w.further questions or concerns. Dontae states he and his are doing good and embracing all of the loving friends and family that have been visiting [facility]. Both are eager to return home w/support from friends, family and hospice staff. Dontae appreciative for this INSPECTOR PACKER GLASS CONTAINER's help and appreciative Hospice has an opening this w/e. Onc [facility] Keyla Peace-Laws also very involved w/this plan and has been in close contact w/ [facility] to get supportive docs faxed as needed. Following closely. SHERRILL Johnson
[2018-03-17] MEDS: METOCLOPRAMIDE 10 MG/2 ML INJ IV ×2 (17:23→23:53)
[2018-03-17] MEDS: POTASSIUM CHLORIDE 40 MEQ in SODIUM CHLORIDE 0.9% 500 ML 130 ML IV (20:52)
[2018-03-18] VITALS: PULSE 96; O2SAT 96
[2018-03-18] MEDS: ZOLPIDEM 5 MG TABLET 10 MG PO (00:08)
--- NOTE | 2018-03-18 00:23 | PC.NURSE ---
pt declined VS check, states i'm going on hospice tomorrow.
[2018-03-18] MEDS: LORazepam 1 MG TABLET PO ×2 (01:18→20:20)
[2018-03-18] MEDS: ONDANSETRON 8 MG in SODIUM CHLORIDE 0.9% 50 ML 216 ML IV ×4 (01:18→20:10)
[2018-03-18 05:30] VITALS: BP 139/75; PULSE 100; RESP 20; TEMP 36.7; O2SAT 92
[2018-03-18] MEDS: METOCLOPRAMIDE 10 MG/2 ML INJ IV ×4 (06:58→23:46)
[2018-03-18] MEDS: HYDROMORPHONE PCA 6 MG/30 ML PCA.VIAL IV ×3 (07:00→21:23)
[2018-03-18 09:10] VITALS: O2SAT 92
--- NOTE | 2018-03-18 09:15 | PC.NURSE ---
Addendum entered by Meredith Perez R.N. 03/18/18 14:52: MS/GI - after pain and nausea controlled, pt was able to take shower with assist from commercial artist lettering and spouse, ret bed, does tire after exhertion, using classification officer for pain relief, scopalamine patch placed after hair dried, fang sips fluid with scheduled reglan and zofran. Original Note: AM NOTE - drowsy, appears tired, did not sleep well last night, dilaudid classification officer 0.2/10/6mg w/0.1ml cont, hr 102, ra 92%, bs dim, abd distended, some loose stools with some incont, standby assist into br, chaz care provided, ret to bed, zofran iv admin for ongoing nausea, taking sips ellie elisa, declines tray or other foods at this time.
[2018-03-18] MEDS: ENOXAPARIN 80 MG/0.8 ML SYRINGE SUBCUT ×2 (10:06→20:14)
[2018-03-18 11:50] VITALS: BP 125/96; PULSE 106; RESP 20; TEMP 36.3; O2SAT 93
[2018-03-18] MEDS: LACTATED RINGERS 1,000 ML 100 ML IV ×2 (11:58→21:30)
[2018-03-18] MEDS: SCOPOLAMINE 1 PATCH TOP (11:58)
--- NOTE | 2018-03-18 15:36 | PM.PN.1 ---
Subjective Date Patient Seen: 03/18/18 Interval history: Patient with improved pain control. Still with significant diarrhea. She is scheduled to be discharged home on Sat under the care of hospice. She appears comfortable at this time. Exam Vital Signs (past 8 hours): - 03/18/18 09:10 03/18/18 11:50 Temperature 97.3 F L Pulse Rate 106 H Respiratory Rate 20 Blood Pressure 125/96 H Pulse Oximetry 92 93 Oxygen Delivery Method Room Air Oxygen Flow Rate 0 Narrative Exam Narrative: Lethargic but arousable Lungs: decreased breath sounds CV:RRR nl Sl S2 2/6 GILBERTO ABd: distended, palpable masses noted, + fluid wave Ext: no edema Objective Labs Result Diagrams: 03/17/18 05:22 03/17/18 05:22 Assessment & Plan (1) Metastatic colorectal cancer: Problem details: Comfort Care. Awaiting hospice consult Current visit: No Status: Acute (2) Pain: Problem details: Continue Dilaudid for pain Current visit: No Status: Acute (3) C. difficile diarrhea: Problem details: Vancomycin discontinued. Cdiff 03/16 negative Patient has discontinued treatment and does not wish to continue tapering dose of Vanco at this time Current visit: No Status: Acute (4) Ascites: Problem details: Persistant secondary to her metastatic colon cancer Qualifiers: Ascites type: malignant Qualified Code(s): R18.0 - Malignant ascites Current visit: No Status: Acute (5) Hypokalemia due to loss of potassium: Problem details: Will replace Current visit: Yes Status: Acute (6) Hypokalemia due to inadequate potassium intake: Current visit: Yes Status: Acute Quality VTE Deep Vein Thrombosis/Pulmonary Embolism Present on Admission: No
--- NOTE | 2018-03-18 16:22 | PC.NURSE ---
Pt resting quietly in bed with eyes closed. No signs of distress or discomfort. Family present and directs staff to allow for pt's rest. This was done.
[2018-03-18] MEDS: ONDANSETRON 4 MG ODT PO (17:22)
[2018-03-18 17:30] VITALS: BP 143/101; PULSE 103; RESP 20; TEMP 36.5; O2SAT 94
--- NOTE | 2018-03-18 18:03 | PC.NURSE ---
C/o nausea and requests anti-emetics. Emar reviewed with pt and pt given ODT zofran per request followed by iv reglan. Spouse is present and assists pt to bathroom. Pt reports good pain relief with dilaudid building economist/demand and continuous. Sips smoothie at bedside. Many visitors/family members. Pt reports anticipates discharge home Thursday with hospice.
[2018-03-18 18:32] VITALS: O2SAT 94
--- NOTE | 2018-03-19 | DI.RAD.S_ITS ---
PROCEDURE: XR KUB INDICATIONS: patient on signif narcotic therapy. Please assess for stool TECHNIQUE: One view of the abdomen acquired. COMPARISON: None. FINDINGS: Surgical changes and devices: None. Bowel: Bowel gas pattern is normal. Soft tissues: No suspicious abdominal calcifications. Visualized solid organ contours appear normal in size. Intrauterine device is seen. Bones: No suspicious bony lesions. IMPRESSION: No significant fecal burden. No evidence of bowel obstruction or free air. Dictated by: Herb Martin M.D. on 03/19/2018 at 12:47 Approved by: Herb Martin M.D. on 03/19/2018 at 12:47
[2018-03-19 01:33] VITALS: BP 146/92; PULSE 104; RESP 18; TEMP 36.9; O2SAT 94
[2018-03-19] MEDS: ONDANSETRON 8 MG in SODIUM CHLORIDE 0.9% 50 ML 216 ML IV ×4 (02:06→19:59)
[2018-03-19] MEDS: LORazepam 1 MG TABLET PO ×5 (02:06→19:59)
[2018-03-19 02:22] VITALS: O2SAT 94
--- NOTE | 2018-03-19 04:42 | PC.NURSE ---
Addendum entered by Jenelle Javier R.N. 03/19/18 06:18: used 1.5mg during shift of partnership marketing manager Original Note: shift note met with pt at start of shift. AOx3. Appears fatigued. No complaints of N/V. Pain 07/25. Encouraged REGISTERED DENTAL ASSISTANT as needed. Pt stated she was able to sleep well. Call light within reach.
[2018-03-19] MEDS: METOCLOPRAMIDE 10 MG/2 ML INJ IV ×3 (05:59→18:00)
[2018-03-19] MEDS: HYDROMORPHONE PCA 6 MG/30 ML PCA.VIAL IV ×3 (06:00→22:00)
[2018-03-19] MEDS: LACTATED RINGERS 1,000 ML 100 ML IV ×2 (07:45→19:06)
[2018-03-19 08:30] VITALS: O2SAT 96
[2018-03-19] MEDS: ENOXAPARIN 80 MG/0.8 ML SYRINGE SUBCUT ×2 (09:44→19:59)
--- NOTE | 2018-03-19 10:57 | PC.NURSE ---
AM NOTE - awake, drowsy, assist x 1 person oob and ambul to br, loose stool, pericare provided, ret bed, scheduled zofran given and pt fang sips ellie elisa, later am requested ativan and given 1mg, spouse and family arrived and is at bedside.
[2018-03-19] MEDS: ONDANSETRON 4 MG ODT PO (11:22)
--- NOTE | 2018-03-19 13:39 | CM.DPC ---
Per Gin...I spoke with [place] regarding non-emergent transportation home with hospice. It is not a covered benefit.
[2018-03-19 15:00] VITALS: O2SAT 96
--- NOTE | 2018-03-19 15:17 | CM.DPC ---
DCP Cont: P: Home Thursday, via spouse pov, Hospice to f/u immediately in pt's home. repairer maintenance building will supervisor pt's pain pump here at [facility] to assist in the transition from hospital home. Dr Mays aware of plan above. Reviewed this plan w/spouse Dontae multiple times today. [facility] has delivered all DME except for a bedside table. [facility]ra w/ [facility] made aware. [facility] will need DC summary faxed tomorrow when available. Following closely for coordination of safe DCP. NANCY
--- NOTE | 2018-03-19 15:18 | PM.PN.1 ---
Subjective Date Patient Seen: 03/19/18 Time Patient Seen: 07:18 Interval history: History of present illness Follow-up on patient with a advanced metastatic colorectal cancer with mets to the lung and multiple regions as well as the uterus Prognosis is poor Patient to be discharged on to hospice tomorrow to home setting Patient with continued abdominal pain with nausea which is in part due to small-bowel obstruction. Review of systems No chest pain or shortness of breath but continued nausea with abdominal pain addressed with the ASSISTED SALES REPRESENTATIVE Dilaudid and fentanyl patch Exam Vital Signs (past 8 hours): - 03/19/18 08:30 Pulse Oximetry 96 Oxygen Delivery Method Room Air Oxygen Flow Rate 0 Narrative Exam Narrative: General appearance patient is awake and alert with moderate distress related to the abdominal pain and nausea Psychiatric well oriented to time place and person mood is somber flat affect and appropriate for circumstance Respiratory fairly clear to auscultation no wheezes no crackles good airflow Cardiovascular regular rate rhythm no murmurs +3 pulses GI next visibly sensitive and tender positive bowel sounds though diminished distention noted induration to middle of the abdomen related to the cancer Objective Labs Result Diagrams: 03/17/18 05:22 03/17/18 05:22 Assessment & Plan Plan: Assessment/Plan Narrative: Refractory nausea and vomiting with diffuse abdominal pain This may be multifactorial as cause. Patient on a new chemotherapy regimen for the colorectal cancer. Patient also on multiple narcotic therapy with a quiescent abdomen on admission two view x-ray of the abdomen reported incomplete small bowel obstruction. A follow-up KUB x-ray of the abdomen on March 19 notes no significant stool. Patient was offered NG tube with intermittent suction which would certainly aid in reducing gastric distention which is often associated with small bowel obstruction Increase the Zofran dose to 8 mg IV q.6 hours along with continuance of Reglan IV as needed ASSISTED SALES REPRESENTATIVE Dilaudid started. Incomplete small bowel obstruction This is noted on x-rays of the abdomen. Patient declined NG tube which would address hopefully the gastric distension if provided Significant abdominal pain started ASSISTED SALES REPRESENTATIVE Dilaudid intravenous therapy Fentanyl topical continued Diagnosis of C diff colitis 8 weeks ago Follow-up C diff toxin of stool was negative during this hospital course Metastatic colorectal cancer with mets to the lung and uterus region Patient is followed by Dr. Jeffery at the Oncology Clinic. Prognosis is poor Patient to be discharged tomorrow with hospice DVT right upper extremity 3-4 months ago Lovenox at 80 mg subcu b.i.d. to address Time Spent With Patient Time with patient: 25 - 35 minutes (25 min) Quality VTE Deep Vein Thrombosis/Pulmonary Embolism Present on Admission: No
--- NOTE | 2018-03-19 15:25 | P.PN_ITS ---
Subjective Date Patient Seen: 03/19/18 Time Patient Seen: 07:18 Interval history: History of present illness Follow-up on patient with a advanced metastatic colorectal cancer with mets to the lung and multiple regions as well as the uterus Prognosis is poor Patient to be discharged on to hospice tomorrow to home setting Patient with continued abdominal pain with nausea which is in part due to small- bowel obstruction. Review of systems No chest pain or shortness of breath but continued nausea with abdominal pain addressed with the LOSS PREVENTION REPRESENTATIVE Dilaudid and fentanyl patch Exam Vital Signs (past 8 hours): - 03/19/18 08:30 Pulse Oximetry 96 Oxygen Delivery Method Room Air Oxygen Flow Rate 0 Narrative Exam Narrative: General appearance patient is awake and alert with moderate distress related to the abdominal pain and nausea Psychiatric well oriented to time place and person mood is somber flat affect and appropriate for circumstance Respiratory fairly clear to auscultation no wheezes no crackles good airflow Cardiovascular regular rate rhythm no murmurs +3 pulses GI next visibly sensitive and tender positive bowel sounds though diminished distention noted induration to middle of the abdomen related to the cancer Objective Labs Result Diagrams: 03/17/18 05:22 03/17/18 05:22 Assessment & Plan Plan: Assessment/Plan Narrative: Refractory nausea and vomiting with diffuse abdominal pain This may be multifactorial as cause. Patient on a new chemotherapy regimen for the colorectal cancer. Patient also on multiple narcotic therapy with a quiescent abdomen on admission two view x-ray of the abdomen reported incomplete small bowel obstruction. A follow-up KUB x-ray of the abdomen on March 19 notes no significant stool. Patient was offered NG tube with intermittent suction which would certainly aid in reducing gastric distention which is often associated with small bowel obstruction Increase the Zofran dose to 8 mg IV q.6 hours along with continuance of Reglan IV as needed LOSS PREVENTION REPRESENTATIVE Dilaudid started. Incomplete small bowel obstruction This is noted on x-rays of the abdomen. Patient declined NG tube which would address hopefully the gastric distension if provided Significant abdominal pain started LOSS PREVENTION REPRESENTATIVE Dilaudid intravenous therapy Fentanyl topical continued Diagnosis of C diff colitis 8 weeks ago Follow-up C diff toxin of stool was negative during this hospital course Metastatic colorectal cancer with mets to the lung and uterus region Patient is followed by Dr. Jeffery at the Oncology Clinic. Prognosis is poor Patient to be discharged tomorrow with hospice DVT right upper extremity 3-4 months ago Lovenox at 80 mg subcu b.i.d. to address Time Spent With Patient Time with patient: 25 - 35 minutes (25 min) Quality VTE Deep Vein Thrombosis/Pulmonary Embolism Present on Admission: No
[2018-03-19 23:00] VITALS: O2SAT 97
[2018-03-20] MEDS: METOCLOPRAMIDE 10 MG/2 ML INJ IV ×2 (00:51→05:52)
[2018-03-20] MEDS: LORazepam 1 MG TABLET PO ×2 (00:54→10:35)
[2018-03-20 01:00] VITALS: PULSE 100; RESP 18; O2SAT 97
[2018-03-20] MEDS: ONDANSETRON 8 MG in SODIUM CHLORIDE 0.9% 50 ML 216 ML IV ×2 (03:17→09:07)
[2018-03-20] MEDS: LACTATED RINGERS 1,000 ML 100 ML IV (05:52)
[2018-03-20] MEDS: HYDROMORPHONE PCA 6 MG/30 ML PCA.VIAL IV (06:00)
--- NOTE | 2018-03-20 06:17 | PC.NURSE ---
pt declined vs checks, hr 100, rr 18 p.o. 97% ra
[2018-03-20 08:27] VITALS: BP 131/91; PULSE 106; RESP 16; TEMP 37.3; O2SAT 91
[2018-03-20 09:04] LABS: BUN Creatinine Ratio 11.4 (6-22); Blood Urea Nitrogen 8 mg/dL (7-17); Calcium 7.7 mg/dL (8.4-10.2); Carbon Dioxide 30 mmol/L (22-32); Chloride 101 mmol/L (98-107); Estimated Glomerular Filt Rate > 60.0 mL/min (>60); Glucose 73 mg/dL (70-100); HEMOLYSIS < 15 (0-50); Magnesium 1.6 mg/dL (1.6-2.3); Potassium 2.9 mmol/L (3.4-5.1); Sodium 138 mmol/L (137-145)
[2018-03-20 09:29] VITALS: O2SAT 90
--- NOTE | 2018-03-20 10:10 | P.DS_ITS ---
History of Present Illness Date Patient Seen: 03/20/18 Time Patient Seen: 09:00 Chief complaint: Refractory N/V/D Narrative: [age] years of age female with unfortunate diagnosis of a advanced metastatic colorectal cancer that is deemed non curable. Initial diagnosis of the colorectal cancer June 2017. Prognosis is considered poor. The oncology clinic has informed patient of the prognosis. Patient has requested DNR code status. Patient with a diagnosis of her 2nd relapse of C diff colitis approximately 8 weeks ago. Patient has been on a tapering dose of vancomycin to treat. According to the patient and the at bedside there was no C diff toxin obtained in stool to confirm diagnosis 8 weeks ago. Patient has been tapering down on the vancomycin but unable to take due to refractory nausea and vomiting. Patient was recently changed on her chemotherapy regimen which may have imparted at risk for nausea and vomiting symptoms. This was noted by the nurse practitioner working in the Oncology Clinic. Patient on Coumadin for treatment of a DVT to the right upper extremity that was diagnosed about 3-4 months ago. The sides the nausea and vomiting patient also notes abdominal pain is somewhat diffusely but a primary focus of discomfort to the abdomen in the region of a abdominal mass presumably related to the colorectal cancer. At the time of my exam with patient the nausea was less than it was in the oncology clinic setting. Discharge Providers Date of admission: 03/15/18 14:21 Consults: 03/16/18 12:25 Consult to General Surgery Routine Comment: Dr Roberts Consulting Provider: Tho Roberts Reason for consultation: SBO in patient with Colorectal Cancer. Has provider been notified: Yes Discharge provider: Cristobal Mays MD Discharge Date: 03/20/18 Summary Discharge Diagnosis: Refractory nausea and vomiting with diffuse abdominal pain This may be multifactorial as cause. Patient on a new chemotherapy regimen for the colorectal cancer. Patient also on multiple narcotic therapy with a quiescent abdomen on admission two view x-ray of the abdomen reported incomplete small bowel obstruction. A follow-up KUB x-ray of the abdomen on March 19 notes no significant stool. Patient was offered NG tube with intermittent suction which would certainly aid in reducing gastric distention which is often associated with small bowel obstruction Increase the Zofran dose to 8 mg IV q.6 hours along with continuance of Reglan IV as needed SWEEPER OPERATOR HIGHWAYS Dilaudid started. Incomplete small bowel obstruction This is noted on x-rays of the abdomen. Patient declined NG tube which would address hopefully the gastric distension if provided Significant abdominal pain started SWEEPER OPERATOR HIGHWAYS Dilaudid intravenous therapy and to be continued upon discharge under hospice Fentanyl topical continued Diagnosis of C diff colitis 8 weeks ago Follow-up C diff toxin of stool was negative during this hospital course Metastatic colorectal cancer with mets to the lung and uterus region Patient is followed by Dr. Jeffery at the Oncology Clinic. Prognosis is poor Patient to be discharged today in AM under hospice care. DVT right upper extremity 3-4 months ago Lovenox at 80 mg subcu b.i.d. to address during hosp course resume pradaxa in home setting. Hospital Course: [age] years of age female admitted to the hospital with abdominal pain and nausea and vomiting. Patient with a known history of metastatic colorectal cancer with prognosis poor. No surgical intervention offered to the patient regarding her colorectal cancer. Patient has been receiving a varying chemotherapy agent at the therapy in outpatient setting. During hospital course patient is noted to have a small-bowel obstruction. Patient on narcotic therapy in home setting prior to admission. There was a question of patient having an dose obstructive versus functional bowel obstruction. I consulted with general surgeon a few days ago. He recommended a double contrast CT of the abdomen pelvis to further eval. Last CT of the abdomen pelvis was weeks ago. Patient was unwilling to undergo procedure. This would require taking the contrast orally. Patient also was unwilling to have the NG tube placed to decompress her abdomen with a small bowel obstruction. She was in favor of having a SWEEPER OPERATOR HIGHWAYS Dilaudid provided. This was started and continued during hospital course. Hospice was consulted and plans to take patient home today on their SWEEPER OPERATOR HIGHWAYS Dilaudid pump. Last lab work was a few days ago. I checked her potassium this morning and was 2.9. Patient was in favor of rechecking the potassium. Patient did not want any further blood transfusions so a CBC to consider blood transfusion was off the table anyway. With a potassium of 2.9 I provided patient 40 mEq of liquid potassium orally. Prescription provided the take an additional 40 mEq orally liquid later this afternoon. I did a KUB yesterday of the abdomen which did not disclosed a significant amount of stool across the rectal transverse colon vault. I was concerned patient may have a opiate induced constipation. This can certainly still be an issue but there is not a lot of stool to try to evacuate at this juncture. We do not know the extent of the obstructive process from the colorectal cancer since no further imaging has been done. Status at Discharge Functional status at discharge: bed bound Time Spent with Patient Greater than 30 minutes (50 min) Exam Vital Signs (past 8 hours): - 03/20/18 08:27 03/20/18 09:29 Temperature 99.2 F Pulse Rate 106 H Respiratory Rate 16 Blood Pressure 131/91 H Pulse Oximetry 91 90 L Oxygen Delivery Method Room Air Oxygen Flow Rate 0 Narrative Exam Narrative: Patient is awake and alert with moderate distress related to the abdominal discomfort. Psychiatric well oriented to time place person mood is stressed and understandably so affect is appropriate Respiratory fairly clear to auscultation no wheezes crackles Cardiovascular regular rate rhythm no murmur +3 pulses noted GI surprisingly bowel sounds are noted LEs tenderness it appears compared to a few days ago when examiner. Distention still evident. Objective Labs Result Diagrams: 03/17/18 05:22 03/20/18 08:40 Labs: Laboratory Results - last 24 hr 03/20/18 08:40 Sodium 138 Potassium 2.9 L Chloride 101 Carbon Dioxide 30 BUN 8 Creatinine 0.70 Estimated GFR > 60.0 BUN/Creatinine Ratio 11.4 Glucose 73 Calcium 7.7 L Magnesium 1.6 Discharge Plan Discharge Plan Patient Disposition: Hospice - Home Discharge comment: discharge to home under Hospice care. Discharge Med Rec/Prescriptions Prescriptions: New potassium chloride 40 mEq/15 mL liquid 40 meq PO .once Qty: 15 RF: 0 Continue levonorgestrel [Mirena] 1 EACH intrauterine device 52 mg INTRAU .ONCE Qty: 0 RF: 0 gabapentin 300 mg capsule 1 - 2 cap PO TID PRN (Reason: Pain, Moderate) Qty: 120 RF: 0 fentanyl 75 mcg/hr patch 72 hour 75 mcg Transdermal Q3D RF: 0 lorazepam 0.5 MG tablet 1 mg PO Q6HP PRN (Reason: nausea or sleep) RF: 0 ondansetron [Zofran ODT] 4 mg tablet,disintegrating 4 mg PO Q8H PRN (Reason: Nausea) RF: 0 dabigatran etexilate [Pradaxa] 150 mg Capsule 150 mg PO BID RF: 0 Discontinued losartan 50 MG tablet 50 mg PO QDAY Qty: 90 RF: 3 vancomycin tablet 125 mg PO QID RF: 0 oxycodone-acetaminophen [Percocet] 5 MG/325 MG tablet 1 - 2 tab PO Q4HP PRN (Reason: cancer pain) Qty: 60 RF: 0 zolpidem 10 MG tablet 5 - 10 mg PO BEDTIME PRN (Reason: Sleep) RF: 0 Visit Report/Discharge Packet Visit Report Forms: Stroke Signs & Symptoms Discharge Data Attending Provider: Cristobal Mays Admit Date/Time: 03/15/18 14:21 Quality VTE Deep Vein Thrombosis/Pulmonary Embolism Present on Admission: No
--- NOTE | 2018-03-20 10:41 | CM.DPC ---
Addendum entered by SHERRILL Gregg 03/20/18 10:49: ADD: SW faxed pt d/c summary to [facility] for review. Original Note: DCP Discharge Home w/ [facility] Per MD, pt had a blood draw this morning to follow up on her potassium levels and providing her with extra potassium before d/c home with Hospice today. SW called [facility] and spoke to IVAN Atwood and updated on pt status and she confirms that she will be bedside at 1000 to change pt's COMPRESSOR ENGINEER pump to their own that they will manage and will follow pt home at d/c today to open pt to service. IVAN Atwood will call pt's spouse and update on time she will be bedside. SW updated RN who is aware and spouse to provide transport home. Plan: SW to follow for pt d/c home this morning via spouse POV and [facility] IVAN Atwood to follow for opening pt to service once she arrives home. SHERRILL Gregg
--- NOTE | 2018-03-20 11:38 | PC.NURSE ---
Pt ready for discharge home. Reviewed d/c information with Pt and Spouse. Hospice present in room and switched Pt to their Dilaudid [employer] pump. Pt transferred to w/c with assist. Pt out to POV with Spouse and all belongings.
== END 2018-03-20 11:40 | disposition hospice, home (50) | DRG 375 ==
PROVIDERS: Admitting Provider Internal Medicine; Visit Provider Internal Medicine
DX: C19 Malignant neoplasm of rectosigmoid junction (principal); C78.00 Secondary malignant neoplasm of unspecified lung; C79.82 Secondary malignant neoplasm of genital organs; R18.0 Malignant ascites; A04.72 Enterocolitis due to Clostridium difficile, not specified as recurrent; I82.621 Acute embolism and thrombosis of deep veins of right upper extremity; R11.2 Nausea with vomiting, unspecified; Z66 Do not resuscitate; Z79.01 Long term (current) use of anticoagulants; G89.3 Neoplasm related pain (acute) (chronic); E87.6 Hypokalemia
CPT/HCPCS: 36591; 74018; 74022; 80048; 80053; 83735; 85025; 87493; 99232; J1170; J1650; J2405; J2765; J3480